=== PATIENT | male | born 1965 | race Caucasian/White ===

== ENCOUNTER 2017-03-05 21:47 | Inpatient (IN) | payer OTHER ==
[2017-03-05] MEDS ORDERED: NACL 0.9% 1000 ML 2,000 ML ONE (22:06)
[2017-03-05] MEDS ORDERED: VASELINE LIP THERAPY TP PRN (22:11)
[2017-03-05] MEDS ORDERED: ARTIFICIAL TEARS OPHTH OINT OU PRN (22:11)
--- NOTE | 2017-03-05 22:14 | Emergency Department Report ---
ED General Adult HPI - General Chief complaint: Altered Mental Status Stated complaint: OVERDOSE Time Seen by Provider: 03/05/17 22:07 Source: EMS (verbal report received from EMS.ems notes not available at time of chart dictation), RN notes reviewed Limitations: Altered Mental Status, Physical Limitation - History of Present Illness Initial comments: This is a 51-year-old male, he is previously unknown to me. He is brought to the hospital by EMS for altered mental status. As per verbal report from EMS, patient found outside, laying down, for uncertain mechanism, for uncertain duration of time. They report normal Accu-Chek in the field, they report patient was initially obtunded, however his obtundation improved with Narcan. Upon arrival to the ER, the patient was delirious, agitated, and sonorously breathing. He was not protecting his airway, and was clearly a danger to himself and other staff members. Therefore, he was emergently intubated by myself using direct laryngoscopy, after rapid sequence intubation No further history is available at this time -: unknown Improves with: none, immobilization Associated Symptoms: confusion - Related Data Allergies Allergy/AdvReac Type Severity Reaction Status Date / Time Unable to Assess Allergy Verified 03/05/17 22:29 ED Review of Systems ROS: Stated complaint: OVERDOSE Other details as noted in HPI Comment: Unobtainable due to pts medical conditions ED Physical Exam - General Limitations: Altered Mental Status, Physical Limitation General appearance: lethargic - Head Head exam: Present: atraumatic, normocephalic - Eye Eye exam: Present: normal appearance, PERRL - ENT ENT exam: Present: mucous membranes dry - Neck Neck exam: Present: normal inspection, full ROM. Absent: tenderness, meningismus - Respiratory Respiratory exam: Present: normal lung sounds bilaterally. Absent: respiratory distress, wheezes, rales, rhonchi, stridor, chest wall tenderness, accessory muscle use, decreased breath sounds, prolonged expiratory - Cardiovascular Cardiovascular Exam: Present: normal rhythm, tachycardia, normal heart sounds. Absent: systolic murmur, diastolic murmur, rubs, gallop - GI/Abdominal GI/Abdominal exam: Present: soft, normal bowel sounds. Absent: distended, tenderness, guarding, rebound, rigid, pulsatile mass - Rectal Rectal exam: Present: normal inspection - exam: Present: normal inspection - Extremities Exam Extremities exam: Present: normal inspection, full ROM, normal capillary refill. Absent: tenderness, pedal edema, joint swelling, calf tenderness - Back Exam Back exam: Present: normal inspection, full ROM. Absent: tenderness, CVA tenderness (R), CVA tenderness (L), muscle spasm, paraspinal tenderness, vertebral tenderness - Neurological Exam Neurological exam: Present: altered, other (prior to intubation, the patient is moving 4 extremities spontaneously) - Psychiatric Psychiatric exam: Present: other (patient nonverbal upon arrival) - Skin Skin exam: Present: warm, dry, intact, normal color. Absent: rash ED Course Vital Signs 03/05/17 03/05/17 03/05/17 21:44 21:45 21:48 Temperature 99.5 F Pulse Rate 123 H 124 H 125 H Respiratory 16 22 16 Rate Blood Pressure 122/75 125/80 O2 Sat by Pulse 99 100 98 Oximetry 03/05/17 03/05/17 03/05/17 22:00 22:15 22:30 Temperature Pulse Rate 128 H 105 H 106 H Respiratory 15 16 20 Rate Blood Pressure 115/67 127/101 O2 Sat by Pulse 100 100 Oximetry 03/05/17 03/05/17 03/05/17 22:45 22:48 23:00 Temperature Pulse Rate 101 H 106 H 111 H Respiratory 32 H 20 Rate Blood Pressure 125/78 115/67 166/103 O2 Sat by Pulse 100 100 99 Oximetry 03/05/17 03/05/17 03/06/17 23:15 23:56 00:00 Temperature Pulse Rate 104 H 85 Respiratory 19 17 19 Rate Blood Pressure 147/92 147/92 123/84 O2 Sat by Pulse 98 100 97 Oximetry 03/06/17 03/06/17 03/06/17 00:01 00:15 00:31 Temperature Pulse Rate 88 84 Respiratory 18 17 27 H Rate Blood Pressure 123/84 118/75 147/92 O2 Sat by Pulse 98 99 98 Oximetry 03/06/17 03/06/17 03/06/17 00:45 00:46 00:51 Temperature Pulse Rate 81 79 82 Respiratory 18 16 Rate Blood Pressure 125/81 O2 Sat by Pulse 99 99 Oximetry 03/06/17 01:00 Temperature Pulse Rate 77 Respiratory 18 Rate Blood Pressure 127/83 O2 Sat by Pulse 99 Oximetry - Reevaluation(s) Reevaluation #1: 03/06/17 00:47 The patient is placed on a 1013 in case this is a suicidal gesture. I will defer to the inpatient team to consult mental health. Reevaluation #2: 03/06/17 02:34 Patient has remained clinically stable. Lactic acid normal lites. Anion gap acidosis normalized. pEnding placement into the intensive care unit. - Intubation Time Out Performed: Yes Sedative: Etomidate Mg Given: 20 Paralytic: Rocuronium Mg Given: 100 Laryngoscope: Paul Size: 4 ET Tube Size: 7.5 Tube Secured Location: teeth Tube Placement Confirmation: visualized tube passing t Patient Tolerated Procedure: well Intubation Complications: none Additional Comments: Prior to intubation, the patient is placed on a nasal cannula at 15 L/m, and receives [id number] ventilation. He does not desaturate. He is then introduced with 20 mg of etomidate, and 100 mg of rocuronium. Direct laryngoscopy is performed with a Paul 4 blade, and a 7.5 endotracheal tube was inserted by myself with direct visualization of the vocal cords. Patient is intubated with C-spine immobilization technique. ED Medical Decision Making - Lab Data Result diagrams: 03/05/17 22:08 03/06/17 01:05 Vital Signs 03/05/17 03/05/17 03/05/17 21:44 21:45 21:48 Temperature 99.5 F Pulse Rate 123 H 124 H 125 H Respiratory 16 22 16 Rate Blood Pressure 122/75 125/80 O2 Sat by Pulse 99 100 98 Oximetry 03/05/17 03/05/17 03/05/17 22:00 22:15 22:30 Temperature Pulse Rate 128 H 105 H 106 H Respiratory 15 16 20 Rate Blood Pressure 115/67 127/101 O2 Sat by Pulse 100 100 Oximetry 03/05/17 03/05/17 03/05/17 22:45 22:48 23:00 Temperature Pulse Rate 101 H 106 H 111 H Respiratory 32 H 20 Rate Blood Pressure 125/78 115/67 166/103 O2 Sat by Pulse 100 100 99 Oximetry 03/05/17 03/05/17 03/06/17 23:15 23:56 00:00 Temperature Pulse Rate 104 H 85 Respiratory 19 17 19 Rate Blood Pressure 147/92 147/92 123/84 O2 Sat by Pulse 98 100 97 Oximetry Lab Results 03/05/17 03/05/17 03/05/17 Range/Units 22:00 22:08 22:08 WBC 10.0 (4.5-11.0) K/mm3 RBC 4.10 (3.65-5.03) M/mm3 Hgb 12.6 (11.8-15.2) gm/dl Hct 38.5 (35.5-45.6) % MCV 94 (84-94) fl MCH 31 (28-32) pg MCHC 33 (32-34) % RDW 14.6 (13.2-15.2) % Plt Count 281 (140-440) K/mm3 Howell % (Auto) Electron Gun Inspector PT 14.4 (12.2-14.9) Sec. INR 1.06 (0.87-1.13) APTT 26.3 (24.2-36.6) Sec. POC ABG pH (7.35-7.45) POC ABG pCO2 (35-45) POC ABG pO2 (80-105) POC ABG HCO3 POC ABG Total CO2 POC ABG O2 Sat POC ABG Base Excess FiO2 % Sodium (137-145) mmol/L Potassium (3.6-5.0) mmol/L Chloride (98-107) mmol/L Carbon Dioxide (22-30) mmol/L Anion Gap mmol/L BUN (9-20) mg/dL Creatinine (0.8-1.5) mg/dL Estimated GFR ml/min BUN/Creatinine Ratio % Glucose (75-100) mg/dL Lactic Acid 14.00 H* (0.7-2.0) mmol/L Calcium (8.4-10.2) mg/dL Total Bilirubin (0.1-1.2) mg/dL AST (5-40) units/L ALT (7-56) units/L Alkaline Phosphatase (35-129) units/L Ammonia (25-60) umol/L Total Creatine Kinase (55-170) units/L Troponin T (0.00-0.029) ng/mL Total Protein (6.3-8.2) g/dL Albumin (3.9-5) g/dL Albumin/Globulin Ratio % TSH (0.270-4.200) mlU/mL Urine Color (Yellow) Urine Turbidity (Clear) Urine pH (5.0-7.0) Ur Specific Strawberry (1.003-1.030) Urine Protein (Negative) mg/dL Urine Glucose (UA) (Negative) mg/dL Urine Ketones (Negative) mg/dL Urine Blood (Negative) Urine Nitrite (Negative) Urine Bilirubin (Negative) Urine Urobilinogen (<2.0) mg/dL Ur Leukocyte Esterase (Negative) Urine WBC (Auto) (0.0-6.0) /HPF Urine RBC (Auto) (0.0-6.0) /HPF Urine Bacteria (Auto) (Negative) /HPF Urine Mucus /HPF Salicylates (2.8-20.0) mg/dL Urine Opiates Screen Urine Methadone Screen Acetaminophen (10.0-30.0) ug/mL Ur Barbiturates Screen Ur Phencyclidine Scrn Ur Amphetamines Screen U Benzodiazepines Scrn Urine Cocaine Screen U Marijuana (THC) Screen Drugs of Abuse Note 03/05/17 03/05/17 03/05/17 Range/Units 22:09 22:14 22:14 WBC (4.5-11.0) K/mm3 RBC (3.65-5.03) M/mm3 Hgb (11.8-15.2) gm/dl Hct (35.5-45.6) % MCV (84-94) fl MCH (28-32) pg MCHC (32-34) % RDW (13.2-15.2) % Plt Count (140-440) K/mm3 Howell % (Auto) PT (12.2-14.9) Sec. INR (0.87-1.13) APTT (24.2-36.6) Sec. POC ABG pH (7.35-7.45) POC ABG pCO2 (35-45) POC ABG pO2 (80-105) POC ABG HCO3 POC ABG Total CO2 POC ABG O2 Sat POC ABG Base Excess FiO2 % Sodium (137-145) mmol/L Potassium (3.6-5.0) mmol/L Chloride (98-107) mmol/L Carbon Dioxide (22-30) mmol/L Anion Gap mmol/L BUN (9-20) mg/dL Creatinine (0.8-1.5) mg/dL Estimated GFR ml/min BUN/Creatinine Ratio % Glucose (75-100) mg/dL Lactic Acid (0.7-2.0) mmol/L Calcium (8.4-10.2) mg/dL Total Bilirubin (0.1-1.2) mg/dL AST (5-40) units/L ALT (7-56) units/L Alkaline Phosphatase (35-129) units/L Ammonia (25-60) umol/L Total Creatine Kinase (55-170) units/L Troponin T (0.00-0.029) ng/mL Total Protein (6.3-8.2) g/dL Albumin (3.9-5) g/dL Albumin/Globulin Ratio % TSH 2.900 (0.270-4.200) mlU/mL Urine Color Lee Ann (Yellow) Urine Turbidity Clear (Clear) Urine pH 5.0 (5.0-7.0) Ur Specific Strawberry 1.025 (1.003-1.030) Urine Protein 100 mg/dl (Negative) mg/dL Urine Glucose (UA) Neg (Negative) mg/dL Urine Ketones Tr (Negative) mg/dL Urine Blood Sm (Negative) Urine Nitrite Neg (Negative) Urine Bilirubin Neg (Negative) Urine Urobilinogen 4.0 (<2.0) mg/dL Ur Leukocyte Esterase Neg (Negative) Urine WBC (Auto) 2.0 (0.0-6.0) /HPF Urine RBC (Auto) 6.0 (0.0-6.0) /HPF Urine Bacteria (Auto) 1+ (Negative) /HPF Urine Mucus 2+ /HPF Salicylates (2.8-20.0) mg/dL Urine Opiates Screen Presumptive negative Urine Methadone Screen Presumptive negative Acetaminophen (10.0-30.0) ug/mL Ur Barbiturates Screen Presumptive negative Ur Phencyclidine Scrn Presumptive negative Ur Amphetamines Screen Presumptive positive U Benzodiazepines Scrn Presumptive negative Urine Cocaine Screen Presumptive positive U Marijuana (THC) Screen Presumptive negative Drugs of Abuse Note Disclamer 03/05/17 03/05/17 03/05/17 Range/Units 22:47 22:48 22:49 WBC (4.5-11.0) K/mm3 RBC (3.65-5.03) M/mm3 Hgb (11.8-15.2) gm/dl Hct (35.5-45.6) % MCV (84-94) fl MCH (28-32) pg MCHC (32-34) % RDW (13.2-15.2) % Plt Count (140-440) K/mm3 Howell % (Auto) PT (12.2-14.9) Sec. INR (0.87-1.13) APTT (24.2-36.6) Sec. POC ABG pH 7.300 L (7.35-7.45) POC ABG pCO2 46.4 H (35-45) POC ABG pO2 623 H (80-105) POC ABG HCO3 22.8 POC ABG Total CO2 24 POC ABG O2 Sat 100 POC ABG Base Excess -4 FiO2 100 % Sodium (137-145) mmol/L Potassium (3.6-5.0) mmol/L Chloride (98-107) mmol/L Carbon Dioxide (22-30) mmol/L Anion Gap mmol/L BUN (9-20) mg/dL Creatinine (0.8-1.5) mg/dL Estimated GFR ml/min BUN/Creatinine Ratio % Glucose (75-100) mg/dL Lactic Acid (0.7-2.0) mmol/L Calcium (8.4-10.2) mg/dL Total Bilirubin (0.1-1.2) mg/dL AST (5-40) units/L ALT (7-56) units/L Alkaline Phosphatase (35-129) units/L Ammonia 241.0 H (25-60) umol/L Total Creatine Kinase (55-170) units/L Troponin T (0.00-0.029) ng/mL Total Protein (6.3-8.2) g/dL Albumin (3.9-5) g/dL Albumin/Globulin Ratio % TSH (0.270-4.200) mlU/mL Urine Color (Yellow) Urine Turbidity (Clear) Urine pH (5.0-7.0) Ur Specific Strawberry (1.003-1.030) Urine Protein (Negative) mg/dL Urine Glucose (UA) (Negative) mg/dL Urine Ketones (Negative) mg/dL Urine Blood (Negative) Urine Nitrite (Negative) Urine Bilirubin (Negative) Urine Urobilinogen (<2.0) mg/dL Ur Leukocyte Esterase (Negative) Urine WBC (Auto) (0.0-6.0) /HPF Urine RBC (Auto) (0.0-6.0) /HPF Urine Bacteria (Auto) (Negative) /HPF Urine Mucus /HPF Salicylates < 0.3 L (2.8-20.0) mg/dL Urine Opiates Screen Urine Methadone Screen Acetaminophen (10.0-30.0) ug/mL Ur Barbiturates Screen Ur Phencyclidine Scrn Ur Amphetamines Screen U Benzodiazepines Scrn Urine Cocaine Screen U Marijuana (THC) Screen Drugs of Abuse Note 03/05/17 03/05/17 Range/Units 22:49 22:53 WBC (4.5-11.0) K/mm3 RBC (3.65-5.03) M/mm3 Hgb (11.8-15.2) gm/dl Hct (35.5-45.6) % MCV (84-94) fl MCH (28-32) pg MCHC (32-34) % RDW (13.2-15.2) % Plt Count (140-440) K/mm3 Howell % (Auto) PT (12.2-14.9) Sec. INR (0.87-1.13) APTT (24.2-36.6) Sec. POC ABG pH (7.35-7.45) POC ABG pCO2 (35-45) POC ABG pO2 (80-105) POC ABG HCO3 POC ABG Total CO2 POC ABG O2 Sat POC ABG Base Excess FiO2 % Sodium 138 (137-145) mmol/L Potassium 4.3 (3.6-5.0) mmol/L Chloride 94.8 L (98-107) mmol/L Carbon Dioxide 12 L (22-30) mmol/L Anion Gap 36 mmol/L BUN 16 (9-20) mg/dL Creatinine 1.0 (0.8-1.5) mg/dL Estimated GFR > 60 ml/min BUN/Creatinine Ratio 16.00 % Glucose 155 H (75-100) mg/dL Lactic Acid (0.7-2.0) mmol/L Calcium 9.2 (8.4-10.2) mg/dL Total Bilirubin 0.60 (0.1-1.2) mg/dL AST 276 H (5-40) units/L ALT 295 H (7-56) units/L Alkaline Phosphatase 91 (35-129) units/L Ammonia (25-60) umol/L Total Creatine Kinase 727 H (55-170) units/L Troponin T < 0.010 (0.00-0.029) ng/mL Total Protein 8.7 H (6.3-8.2) g/dL Albumin 4.0 (3.9-5) g/dL Albumin/Globulin Ratio 0.9 % TSH (0.270-4.200) mlU/mL Urine Color (Yellow) Urine Turbidity (Clear) Urine pH (5.0-7.0) Ur Specific Strawberry (1.003-1.030) Urine Protein (Negative) mg/dL Urine Glucose (UA) (Negative) mg/dL Urine Ketones (Negative) mg/dL Urine Blood (Negative) Urine Nitrite (Negative) Urine Bilirubin (Negative) Urine Urobilinogen (<2.0) mg/dL Ur Leukocyte Esterase (Negative) Urine WBC (Auto) (0.0-6.0) /HPF Urine RBC (Auto) (0.0-6.0) /HPF Urine Bacteria (Auto) (Negative) /HPF Urine Mucus /HPF Salicylates (2.8-20.0) mg/dL Urine Opiates Screen Urine Methadone Screen Acetaminophen < 15.0 (10.0-30.0) ug/mL Ur Barbiturates Screen Ur Phencyclidine Scrn Ur Amphetamines Screen U Benzodiazepines Scrn Urine Cocaine Screen U Marijuana (THC) Screen Drugs of Abuse Note - EKG Data -: EKG Interpreted by De EKG shows normal: sinus rhythm Rate: tachycardia - EKG Data When compared to previous EKG there are: previous EKG unavailable 03/06/17 00:43 Sinus tachycardia, 103 bpm, normal axis, QTC 503 ms, abnormal EKG, not morphologically consistent with stemi - Radiology Data Radiology results: report reviewed, image reviewed X-ray the chest is negative for acute disease. Endotracheal tube noted at the liban. Noncontrast CT scan of the brain is negative Noncontrast CT scan of the cervical spine is negative - Medical Decision Making Differential diagnosis: Polysubstance overdose, toxic encephalopathy, metabolic encephalopathy, withdrawal seizure to cranial injury, cervical spine injury Assessment and plan: 51-year-old male who is currently intubated with altered mental status, most likely with a toxic/metabolic encephalopathy. He is initially tachycardic, this has improved with supportive care. Blood pressure has remained stable. Creatinine kinase elevated at 700 with normal renal function, he is afebrile rectally, laboratory studies indicate an elevated ammonia level, transaminitis, elevated lactic acid level, with the urine toxicology being positive for cocaine and amphetamines. Most likely, the patient has an encephalopathy secondary to sympathomimetic abuse. The patient will not benefit from charcoal, because we do not have an exact onset of symptoms, and his serum toxicology studies at this point time have been negative. We will repeat a lactic acid and basic metabolic panel to assess if the gap has closed with supportive care. Case is presented to the Hospital physician, Dr. Joy, And the critical care physician, Dr. Zelaya, who accepted the patient, and who authorized triaged to the ICU respectively. , Critical Care Time: Yes Critical care time in (mins) excluding proc time.: 60 Critical care attestation.: If time is entered above; I have spent that time in minutes in the direct care of this critically ill patient, excluding procedure time. Critical Care Time: Critical care time includes multiple bedside evaluations, interpretation of laboratory studies, radiology studies, time spent resuscitating a critically ill patient with a toxic metabolic encephalopathy, who requires intubation, consultation with hospital medicine, critical care. This does not include procedure time. ED Disposition Clinical Impression: Encephalopathy, Respiratory failure Disposition: 09 OP ADMIT IP TO THIS HOSP Is pt being admited?: Yes Condition: Critical
[2017-03-05 22:50] LABS: Urine Drugs of Abuse Note Disclamer
[2017-03-05] MEDS ORDERED: NACL 0.9% 1000 ML 1,000 ML IV ONE ×3 (22:53→23:05)
[2017-03-05 22:57] LABS: Hematocrit 38.5 % (35.5-45.6); Hemoglobin 12.6 gm/dl (11.8-15.2); Mean Corpuscular HGB Conc 33 % (32-34); Mean Corpuscular Hemoglobin 31 pg (28-32); Mean Corpuscular Volume 94 fl (84-94); Platelet Count 281 K/mm3 (140-440); Red Cell Distribution Width 14.6 % (13.2-15.2)
[2017-03-05] MEDS ORDERED: NACL 0.9% 500 ML IV SCH (23:00)
[2017-03-05 23:02] LABS: Bacteria,Urine 1+ /HPF (Negative); Bilirubin,Urine NEG (Negative); Blood,Urine SM (Negative); Ketones,Urine TR mg/dL (Negative); Leukocyte Esterase,Urine NEG (Negative); Mucus,Urine 2+ /HPF; Nitrite,Urine NEG (Negative)
[2017-03-05] MEDS: fentaNYL DRIP Premix 2,000 MCG/100 ML BAG IV SCH (23:04)
[2017-03-05] MEDS: DIPRIVAN 10 MG/ML 1,000 MG/100 ML BOTTLE IV SCH (23:04)
[2017-03-05 23:07] LABS: INR 1.06 (0.87-1.13)
[2017-03-05 23:08] LABS: Partial Thromboplastin Time 26.3 Sec. (24.2-36.6)
[2017-03-05] MEDS ORDERED: CEPHULAC FEEDTUBE ONE (23:10)
[2017-03-05 23:14] LABS: ISTAT Base Excess -4; ISTAT HCO3 22.8; ISTAT PCO2 46.4 (35-45); ISTAT PO2 623 (80-105); ISTAT SO2 100; ISTAT TCO2 24
[2017-03-05 23:31] LABS: Albumin/Globulin Ratio 0.9 %; Alkaline Phosphatase 91 units/L (35-129); Blood Urea Nitrogen 16 mg/dL (9-20); Calcium 9.2 mg/dL (8.4-10.2); Carbon Dioxide 12 mmol/L (22-30); Chloride 94.8 mmol/L (98-107); Creatine Kinase 727 units/L (55-170); Glucose 155 mg/dL (75-100); Sodium 138 mmol/L (137-145); Total Protein 8.7 g/dL (6.3-8.2)
[2017-03-05 23:41] LABS: Alanine Aminotransferase 295 units/L (7-56); Anion Gap 36 mmol/L; Potassium 4.3 mmol/L (3.6-5.0)
[2017-03-05] MEDS ORDERED: NACL 0.9% 1000 ML 1,000 ML IV SCH (23:45)
--- NOTE | 2017-03-06 00:34 | Cat Scan Report ---
FINAL REPORT EXAM: CT HEAD/BRAIN WO CON HISTORY: Altered Mental Status TECHNIQUE: Noncontrast serial axial images from skull base to vertex. PRIORS: CT scan of the head from 06/19/2012 FINDINGS: There is no mass effect or midline shift. There are no abnormal intra or extra-axial fluid collections. Cortical sulci and lateral ventricles are within normal limits for size and configuration. Basilar cisterns are patent. No acute intracranial hemorrhage is identified. Mucosal thickening is seen in scattered ethmoidal air cells and in the frontoethmoidal recesses. No acute osseous abnormality is identified. Nasogastric tube and endotracheal tube are noted in the carton inspector image. IMPRESSION: 1. No abnormal mass or acute intracranial hemorrhage is identified.
--- NOTE | 2017-03-06 01:07 | Cat Scan Report ---
FINAL REPORT EXAM: CT CERVICAL SPINE WO CON HISTORY: ams TECHNIQUE: Noncontrast serial axial images through the cervical spine with coronal and sagittal reconstruction. PRIORS: None. FINDINGS: No gross abnormality is seen in the visualized portion of the brain. Mastoid air cells are well aerated. Prevertebral soft tissues appear within normal limits. Endotracheal tube and enteric tube are noted. There is fluid in pharynx. Visualized portion of the lung apices are clear. No acute fracture or anterolisthesis is identified. Degenerative changes are noted at multiple levels. IMPRESSION: 1. No acute fracture or anterolisthesis is identified. 2. Multilevel degenerative change is noted. 3. Support devices are noted. There is fluid in the pharynx.
[2017-03-06] MEDS ORDERED: ZOFRAN IV PRN (01:34)
[2017-03-06] MEDS ORDERED: TYLENOL PR PRN (01:36)
[2017-03-06 01:40] LABS: BUN/Creatinine Ratio 18.57; Blood Urea Nitrogen 13 mg/dL (9-20); Calcium 7.4 mg/dL (8.4-10.2); Carbon Dioxide 19 mmol/L (22-30); Chloride 104.7 mmol/L (98-107); Glucose 126 mg/dL (75-100); Potassium 3.5 mmol/L (3.6-5.0); Sodium 138 mmol/L (137-145)
[2017-03-06 01:57] LABS: Anion Gap 18 mmol/L
[2017-03-06] MEDS ORDERED: NACL 0.9% 1000 ML 1,000 ML IV SCH (02:00)
[2017-03-06 02:05] LABS: Blastocytes % (Manual) 0 %
[2017-03-06 02:06] LABS: Anisocytosis 1+; Diff Status Complete; Platelet Estimate Consistent w Auto
[2017-03-06] MEDS ORDERED: CEPHULAC ONE (03:25)
[2017-03-06] MEDS ORDERED: DIPRIVAN 10 MG/ML 1,000 MG/100 ML BOTTLE IV ONE (04:55)
[2017-03-06 05:41] LABS: ISTAT Base Excess -3; ISTAT HCO3 22.8; ISTAT PCO2 41.4 (35-45); ISTAT PH 7.348 (7.35-7.45); ISTAT PO2 149 (80-105); ISTAT SO2 99; ISTAT TCO2 24
[2017-03-06] MEDS: DIPRIVAN 10 MG/ML 1,000 MG/100 ML BOTTLE IV SCH ×2 (06:04→19:53)
[2017-03-06] MEDS ORDERED: NACL 0.9% 1000 ML 2,000 ML ONE (06:42)
[2017-03-06 07:07] LABS: Hematocrit 33.9 % (35.5-45.6); Hemoglobin 11.6 gm/dl (11.8-15.2); Mean Corpuscular HGB Conc 34 % (32-34); Mean Corpuscular Hemoglobin 31 pg (28-32); Mean Corpuscular Volume 92 fl (84-94); Platelet Count 232 K/mm3 (140-440); Red Blood Count 3.69 M/mm3 (3.65-5.03); Red Cell Distribution Width 14.8 % (13.2-15.2); White Blood Count 7.3 K/mm3 (4.5-11.0)
[2017-03-06 07:13] LABS: Anion Gap 15 mmol/L; Blood Urea Nitrogen 12 mg/dL (9-20); Calcium 7.2 mg/dL (8.4-10.2); Carbon Dioxide 21 mmol/L (22-30); Chloride 107.2 mmol/L (98-107); Glucose 94 mg/dL (75-100); Potassium 3.7 mmol/L (3.6-5.0); Sodium 139 mmol/L (137-145)
[2017-03-06 07:15] LABS: Creatine Kinase MB 5.1 ng/mL (0.0-4.0)
[2017-03-06 07:16] LABS: Creatine Kinase 504 units/L (55-170)
--- NOTE | 2017-03-06 07:28 | Admit Criteria Form ---
Admission Criteria Documentation: RESPIRATORY FAILURE GRG Clinical Indications for Admission to Inpatient Care (Place 'X' for any and all applicable criteria): Hospital admission is needed for appropriate care of the patient because of acute respiratory failure or insufficiency as indicated by 1 or more of the following (1)(2)(3)(4)(5)(6)(7)(8 ): [X]I. Mechanical ventilation needed (acute invasive or noninvasive) [X]II. Severe ventilation deficit as indicated by 1 or more of the following ( 9) [X]a) Uncompensated Respiratory acidosis (pH < 7.35 and PaCO2 > 40 mmHg (5.3 kPa)) [ ]b) Airflow measurements < 25% of predicted (eg, PEFR < 100 L/min) [ ]c) FVC < 15 mL/kg of ideal body weight, or 50% decrease in vital capacity from baseline [ ]III. Noncardiac pulmonary edema not resolving with rapid emergency treatment (8) [ ]IV. Severe respiratory distress as indicated by 1 or more of the following: [ ]a) Severe tachypnea (respiratory rate greater than 30, greater than 45 for 6-month-old, greater than 60 for ) [ ]b) Severe hypoxemia (partial pressure of oxygen less than 50 mm Hg ( 6.7 kPa) on greater than 50% oxygen or partial pressure of oxygen to FIO2 ratio less than 200) [ ]c) Mental status deterioration from respiratory disease [ ]V. Airway obstruction or inadequate protection [A](10)(11) The original [employer] content created by [employer] has been revised. The portions of the content which have been revised are identified through the use of italic text or in bold, and [employer] has neither reviewed nor approved the modified material. All other unmodified content is copyright [employer]. Please see references footnoted in the original [employer] edition 2017 Admission Criteria Met: Yes
--- NOTE | 2017-03-06 09:16 | History and Physical Report ---
CHIEF COMPLAINT: Change in mental status. HISTORY OF PRESENT ILLNESS: The patient is a 51-year-old male brought to the Emergency Room with a change in mental status. The patient was noted by EMS to be found outside lying down for unknown period of time. He was checked for blood glucose, which was found to be normal. The patient according to EMS was obtunded, and they gave him a dose of Narcan, which improved his mental status. Upon arrival in the Emergency Room, the patient was noted to be agitated and delirious and also having some heavy snoring with difficulty breathing. He was emergently intubated to protect his airway. There was no prior history of chest pain. No prior history of shortness of breath, fever or chills. PAST MEDICAL HISTORY: Not known. FAMILY HISTORY: Noncontributory. SOCIAL HISTORY: Not well known. MEDICATIONS: The patient's home medications are not known. MEDICATIONS: The patient's home medications are not known at this time. ALLERGIES: There are no known drug allergies. REVIEW OF SYSTEMS: CONSTITUTIONAL: There is no fever, no chills, no diaphoresis. HEENT: There is no headache or sore throat. CARDIOVASCULAR: There is no chest pain or orthopnea. RESPIRATORY: There is shortness of breath, but no cough. GASTROINTESTINAL SYSTEM: There is no nausea, no vomiting, no abdominal pain, diarrhea or constipation. NEUROLOGIC: Change in mental status noted. MUSCULOSKELETAL SYSTEM: There is no joint pain or swelling. DERMATOLOGICAL SYSTEM: There is no skin rash or itching. GENITOURINARY: There is no dysuria, hematuria, or flank pain. Rest of system review is normal. PHYSICAL EXAMINATION: GENERAL: At the time of exam, the patient was intubated and sedated, mechanically ventilated, not in acute distress. VITAL SIGNS: Shows normal temperature with pulse of 70, respirations 16, blood pressure 128/86, and O2 sat of 100% on mechanical ventilation. HEENT: Pinpoint pupils that react sluggishly to light. NECK: Supple with no JVD or carotid bruit. CARDIOVASCULAR: Showed normal first and second heart sounds with no gallops or murmurs. LUNGS: Showed good air entry on both sides of the lung, including endotracheal tube and mechanical ventilation, there are no adventitious breath sounds. GASTROINTESTINAL SYSTEM: Show abdomen to be full, soft, nontender with no organomegaly or rigidity elicited. NEUROLOGIC: Shows no focal deficits. MUSCULOSKELETAL SYSTEM: Show no joint swelling or tenderness. DERMATOLOGICAL: Show no skin rash. GENITOURINARY: No costovertebral angle tenderness. PERTINENT LABORATORY DATA AND IMAGING STUDIES: The patient has CBC done that was unremarkable except for increase in the CBC differential showing elevated lymphocyte count of 37% and elevated monocyte count of 17. The patient's coagulation studies came back unremarkable. ABG showed a slightly decreased pH of 7.30 with slightly elevated pCO2 of 46.4 and elevated pO2 of 623 and this was done on FiO2 of 100%. Chemistry shows normal sodium and normal potassium and decreased CO2 of 12 and low chloride of 94.8. The patient's lactic acid level was high with a value of 14 and liver transaminases show a high value of 276 for AST and ALT of 295. The patient's ammonia level was high with a value of 241. Total CPK was high with a value 727 and protein level was slightly elevated with a value of 8.7. Urinalysis came back unremarkable. Urine drug screen is positive for amphetamines and cocaine. IMAGING STUDIES: The patient's CT of the head shows no abnormal mass or acute intracranial hemorrhage. Also, the patient had a CT of the cervical spine done that shows no acute fracture or anterolisthesis. There are multilevel degenerative changes in the joints and supportive devices noted with fluid in the pharynx. DIAGNOSES: 1. Altered mental status. 2. High ammonium level. 3. Polysubstance abuse with cocaine and amphetamine. 4. Rhabdomyolysis. 5. Lactic acidosis. PLAN: The patient will be admitted to medical floor and we will continue the mechanical ventilation with sedation started in the Emergency Room using fentanyl and Versed. DVT prophylaxis will be through sequential compressive device and the patient's ammonia will be checked this morning. The patient will also have basic metabolic panel and CBC checked this morning and will have cardiac enzymes, troponin, total CK, and CK-MB checked q.6 hours x 2 more levels. The patient will be on Tylenol 650 mg rectally q.4 hours for fever and headache and will be on lactulose 10 g t.i.d. via nasogastric tube. The patient will be on IV Zofran 4 mg every 8 hours for nausea and vomiting and will be on IV normal saline foot running at about 150 mL an hour. The patient will have repeat of lactic acid done. [facility]# [id number] [facility]/SIM VELAZQUEZ
--- NOTE | 2017-03-06 09:35 | XRay Report ---
PORTABLE CHEST INDICATION: ET tube placement. COMPARISON: None similar. FINDINGS: Portable, frontal chest radiograph demonstrates top normal heart size and clear lungs, given the inspiration. An esophagogastric tube noted in the proximal stomach with its tip directed cephalad towards the fundus. Endotracheal tube tip at the liban. EKG leads. Intact bones. CONCLUSION: 1. Low lying endotracheal tube, as described that may be retracted approximately 3.5 cm for more optimal placement, if so appropriate. 2. Other findings, as above. I phoned the above results to Dr. Riojas in the ER, 9 AM, 03/06/2017. Thank you for the opportunity to participate in this patient's care.
[2017-03-06] MEDS ORDERED: AMIDATE IV ONE (11:34)
[2017-03-06] MEDS ORDERED: VERSED IV ONE (11:34)
[2017-03-06] MEDS ORDERED: ZEMURON IV ONE (11:34)
--- NOTE | 2017-03-06 12:17 | Consultation ---
History of Present Illness Consult date: 03/06/17 Requesting physician: KVNG WILSON History of present illness: Unable to obtain from the patient. Intubated and sedated. As per ER records, overdose with alteration in mental status. Intubated for airway protection Medications and Allergies Allergies Allergy/AdvReac Type Severity Reaction Status Date / Time Unable to Assess Allergy Verified 03/05/17 22:29 Home Medications Medication Instructions Recorded Confirmed Last Taken Type Unobtainable 03/06/17 03/06/17 Unknown History Active Meds: Active Medications Acetaminophen (Tylenol) 650 mg KS Q4H PRN PRN Reason: Pain, Mild (1-3) Heparin Sodium (Porcine) (Heparin) 5,000 unit SUB-Q Q12HR KAVEH Hydrophilic Ointment (Vaseline Lip Therapy) 1 applic TP Q2HR PRN PRN Reason: Dry Lips Fentanyl Citrate (Fentanyl Drip Premix) 2,000 mcg in 100 mls @ 3.198 mls/hr IV TITR KAVEH; 1 MCG/KG/HR PRN Reason: Protocol Last Titration: 03/06/17 00:04 Dose: 3 mcg/kg/hr, 9.594 mls/hr Propofol (Diprivan 10 Mg/Ml) 1,000 mg in 100 mls @ 1.919 mls/hr IV TITR KAVEH; 5 MCG/KG/MIN PRN Reason: Protocol Last Titration: 03/06/17 10:04 Dose: 20 mcg/kg/min, 7.675 mls/hr Sodium Chloride (Nacl 0.9% 1000 Ml) 1,000 mls @ 125 mls/hr IV DIRECT KAVEH Last Admin: 03/06/17 06:50 Dose: 125 mls/hr Multi-Ingred Cream/Lotion/Oil/Oint (Artificial Tears Ophth Oint) 1 applic OU Q4HR PRN PRN Reason: Dry Eye(s) Ondansetron HCl (Zofran) 4 mg IV Q8H PRN PRN Reason: Nausea And Vomiting Sodium Chloride (Nacl 0.9% 500 Ml) 1 ml IV DIRECT KAVEH Review of Systems ROS unobtainable: due to endotracheal tube, due to mental status Physical Examination Vital signs: Vital Signs Pulse Resp Pulse Ox 123 H 16 99 03/05/17 21:44 03/05/17 21:44 03/05/17 21:44 General appearance: no acute distress, asleep, other (rousable, will open eyes to verbal command: heavily tatooed) Eyes: non-icteric ENT: oropharynx moist Neck: supple Effort: normal Ascultation: Bilateral: clear, diminished breath sounds Cardiovascular: regular rate and rhythm Gastrointestinal: normoactive bowel sounds, soft, non-tender, non-distended Integumentary: normal Extremities: no cyanosis, no edema Musculoskeletal: no deformities unable to assess, other (sedated) Results - Laboratory Findings CBC and BMP: 03/07/17 04:01 03/07/17 04:01 ABG POC ABG pH 7.348 (7.35-7.45) L 03/06/17 05:07 POC ABG pCO2 41.4 (35-45) 03/06/17 05:07 POC ABG pO2 149 (80-105) H 03/06/17 05:07 POC ABG HCO3 22.8 03/06/17 05:07 POC ABG Total CO2 24 03/06/17 05:07 POC ABG O2 Sat 99 03/06/17 05:07 PT/INR, D-dimer PT 14.4 Sec. (12.2-14.9) 03/05/17 22:08 INR 1.06 (0.87-1.13) 03/05/17 22:08 Abnormal lab findings: Abnormal Labs 03/06/17 03/06/17 03/06/17 05:07 06:42 06:42 Hgb Hct POC ABG pH 7.348 L POC ABG pO2 149 H Chloride Carbon Dioxide Calcium Ammonia 75.0 H Total Creatine Kinase 504 H CK-MB (CK-2) 5.1 H 03/06/17 03/06/17 06:42 06:42 Hgb 11.6 L Hct 33.9 L POC ABG pH POC ABG pO2 Chloride 107.2 H Carbon Dioxide 21 L Calcium 7.2 L Ammonia Total Creatine Kinase CK-MB (CK-2) - Diagnostic Findings Chest x-ray: report reviewed Assessment and Plan - Patient Problems (1) Acute respiratory failure with hypoxemia Current Visit: Yes Status: Acute Plan to address problem: Stop midazolam and place on spontaneous breathing trial. Get weaning parameters and plan to liberate from the ventilator, if he meets criteria. VAP bundle addressed. Aspiration precautions VTE and stress ulcer prophylaxis Daily SATs, SBTs if not extubated. Discussed with RT and RN at the bedside (2) Encephalopathy Current Visit: Yes Status: Acute Plan to address problem: Secondary to OD. Currently intubated with sedation on hold. Needs behavioural health consult once extubated
[2017-03-06] MEDS: HEPARIN SUB-Q SCH (12:43)
[2017-03-06 13:10] LABS: ISTAT Base Excess -5; ISTAT HCO3 22.5; ISTAT PH 7.245 (7.35-7.45); ISTAT PO2 82 (80-105); ISTAT SO2 94; ISTAT TCO2 24
[2017-03-06 14:28] LABS: Creatine Kinase MB 4.5 ng/mL (0.0-4.0)
[2017-03-06 14:29] LABS: Creatine Kinase 371 units/L (55-170)
--- NOTE | 2017-03-06 18:51 | Event Note ---
Date: 03/06/17 patient seen and examined this am, remains intubated, continue current care. monitor for any sign of withdrawals
[2017-03-06] MEDS: fentaNYL DRIP Premix 2,000 MCG/100 ML BAG IV SCH (19:54)
[2017-03-07] MEDS: HEPARIN SUB-Q SCH ×3 (03:00→22:06)
[2017-03-07 04:16] LABS: Hematocrit 31.7 % (35.5-45.6); Hemoglobin 10.6 gm/dl (11.8-15.2); Mean Corpuscular HGB Conc 34 % (32-34); Mean Corpuscular Hemoglobin 31 pg (28-32); Mean Corpuscular Volume 93 fl (84-94); Platelet Count 231 K/mm3 (140-440); Red Blood Count 3.42 M/mm3 (3.65-5.03); Red Cell Distribution Width 14.9 % (13.2-15.2); White Blood Count 13.2 K/mm3 (4.5-11.0)
[2017-03-07 04:32] LABS: Anion Gap 16 mmol/L; Blood Urea Nitrogen 13 mg/dL (9-20); Calcium 7.7 mg/dL (8.4-10.2); Carbon Dioxide 20 mmol/L (22-30); Chloride 112.2 mmol/L (98-107); Glucose 76 mg/dL (75-100); Potassium 3.5 mmol/L (3.6-5.0); Sodium 145 mmol/L (137-145)
[2017-03-07 05:36] LABS: ISTAT Base Excess -3; ISTAT HCO3 22.4; ISTAT PCO2 39.4 (35-45); ISTAT PH 7.363 (7.35-7.45); ISTAT PO2 157 (80-105); ISTAT SO2 99; ISTAT TCO2 24
--- NOTE | 2017-03-07 09:17 | XRay Report ---
AP CHEST: HISTORY: Followup respiratory failure. The endotracheal tube has been retracted and now terminates 6 cm superior to the liban. The nasogastric tube terminates in the fundus of the stomach. AP view of the chest demonstrates a normal mediastinal and cardiac contour with clear lungs and normal bony and soft tissue structures. IMPRESSION: Unremarkable AP chest.
--- NOTE | 2017-03-07 11:20 | Consultation ---
History of Present Illness - Reason for Consult Consult date: 03/07/17 Reason for consult: Mental Health Evaluation Requesting physician: PAYAL AMARO - Chief Complaint Chief complaint: Patient intubated" - History of Present Psychiatric Illness This is a 51-year-old male brought to [facility] by EMS for AMS. Per a verbal report from EMS, patient was found outside lying down. Today patient was calm, but intubated during assessment. He nodded "yes" to having a hx of depression. He nodded "no" to being suicidal. Patient was able to squeeze my hand on command. Will follow-up with patient once extubated. Medications and Allergies Allergies Allergy/AdvReac Type Severity Reaction Status Date / Time Unable to Assess Allergy Verified 03/05/17 22:29 Home Medications Medication Instructions Recorded Confirmed Last Taken Type Unobtainable 03/06/17 03/06/17 Unknown History Active Meds: Active Medications Acetaminophen (Tylenol) 650 mg NV Q4H PRN PRN Reason: Pain, Mild (1-3) Heparin Sodium (Porcine) (Heparin) 5,000 unit SUB-Q Q12HR KAVEH Last Admin: 03/07/17 03:00 Dose: 5,000 unit Hydrophilic Ointment (Vaseline Lip Therapy) 1 applic TP Q2HR PRN PRN Reason: Dry Lips Fentanyl Citrate (Fentanyl Drip Premix) 2,000 mcg in 100 mls @ 3.198 mls/hr IV TITR KAVEH; 1 MCG/KG/HR PRN Reason: Protocol Last Titration: 03/07/17 08:13 Dose: 0 mcg/kg/hr, 0 mls/hr Propofol (Diprivan 10 Mg/Ml) 1,000 mg in 100 mls @ 1.919 mls/hr IV TITR KAVEH; 5 MCG/KG/MIN PRN Reason: Protocol Last Titration: 03/07/17 07:00 Dose: 0 mcg/kg/min, 0 mls/hr Sodium Chloride (Nacl 0.9% 1000 Ml) 1,000 mls @ 125 mls/hr IV DIRECT KAVEH Last Admin: 03/06/17 06:50 Dose: 125 mls/hr Multi-Ingred Cream/Lotion/Oil/Oint (Artificial Tears Ophth Oint) 1 applic OU Q4HR PRN PRN Reason: Dry Eye(s) Ondansetron HCl (Zofran) 4 mg IV Q8H PRN PRN Reason: Nausea And Vomiting Sodium Chloride (Nacl 0.9% 500 Ml) 1 ml IV DIRECT KAVEH Past psychiatric history - Past Medical History Past Medical History: other (patient nods to not having a medical hx) Past Surgical History: Other (patient nods to not having a medical hx) - past Psychiatric treatment and history Psych: Depression psychiatric treatment history: Patient admit to nodding yes to having depression. - Social History Social history: Lives alone (Nods to "yes" to living alone ) Mental Status Exam - Vital signs Last Vital Signs Temp 99.7 F H 03/06/17 17:45 Pulse 68 03/07/17 09:00 Resp 16 03/07/17 08:45 BP 106/58 03/07/17 09:00 Pulse Ox 98 03/07/17 09:00 - Exam Narrative exam: Unable to complete MSE, due to current medical condition. Results Result Diagrams: 03/07/17 04:01 03/07/17 04:01 Abnormal lab results 03/06/17 03/06/17 03/07/17 Range/Units 13:03 13:46 04:01 WBC 13.2 H (4.5-11.0) K/mm3 RBC 3.42 L (3.65-5.03) M/mm3 Hgb 10.6 L (11.8-15.2) gm/dl Hct 31.7 L (35.5-45.6) % POC ABG pH 7.245 L (7.35-7.45) POC ABG pCO2 52.0 H (35-45) POC ABG pO2 (80-105) Potassium (3.6-5.0) mmol/L Chloride (98-107) mmol/L Carbon Dioxide (22-30) mmol/L Calcium (8.4-10.2) mg/dL Total Creatine Kinase 371 H (55-170) units/L CK-MB (CK-2) 4.5 H (0.0-4.0) ng/mL 03/07/17 03/07/17 Range/Units 04:01 05:27 WBC (4.5-11.0) K/mm3 RBC (3.65-5.03) M/mm3 Hgb (11.8-15.2) gm/dl Hct (35.5-45.6) % POC ABG pH (7.35-7.45) POC ABG pCO2 (35-45) POC ABG pO2 157 H (80-105) Potassium 3.5 L (3.6-5.0) mmol/L Chloride 112.2 H (98-107) mmol/L Carbon Dioxide 20 L (22-30) mmol/L Calcium 7.7 L (8.4-10.2) mg/dL Total Creatine Kinase (55-170) units/L CK-MB (CK-2) (0.0-4.0) ng/mL All other labs normal. Assessment and Plan Assessment and plan: Impression: Patient positive for cocaine. Today patient was calm, but intubated when asked questions. CK 375, trending down. Medical: AMS Recommendation/Plan: Continue 1013. Gather more information from patient once extubated.
--- NOTE | 2017-03-07 11:38 | Event Note ---
Date: 03/07/17 Patient in ER as an ICU hold. Seen and examined, vitals, labs, medications, chart reviewed. Clinically doing well. Awake. alert, obeying commands. Chest: Good AE bilaterally. On PSV, doing well- RSBI <70 Plan to extubate. Discussed with hospitalist service and RN/RT at the bedside. Once extubated , can transfer to telemetry.
--- NOTE | 2017-03-07 14:47 | Progress Note ---
Assessment and Plan Assessment and plan: This is a 51-year-old male, he is previously unknown to me. He is brought to the hospital by EMS for altered mental status. As per verbal report from EMS, patient found outside, laying down, for uncertain mechanism, for uncertain duration of time. They report normal Accu-Chek in the field, they report patient was initially obtunded, however his obtundation improved with Narcan. Upon arrival to the ER, the patient was delirious, agitated, and sonorously breathing. He was not protecting his airway, and was clearly a danger to himself and other staff members. Therefore, he was emergently intubated by myself using direct laryngoscopy, after rapid sequence intubation Toxic encephalopathy likely secondary to polysubstance abuse * Appears to be improving, continue to monitor for signs of withdrawal Acute Respiratory failure with hypoxemia * Pulmonary following, possible extubation from the vent today Cocain AND Amphetamine poisioning * counselling when more awake Rhabdomyolysis * Continue hydration SIRS secondary to non infectious etiology * Lactic acidosis noted, RESOLVED. NO CLEAR Evidence of infection. monitor for any developing fever. DVT/GI prophylaxis Plan of care discussed with Professor Of Biology. History Interval history: Patient seen and examined in the ER remains intubated awaiting a bed in the ICU. He is much more awake, and following commands, able to raise his head up from the bed and squeez hands, take deep breath. No adverse event reported by Nursing staff. Hospitalist Physical - Constitutional Vitals: Temp Pulse Resp BP Pulse Ox 99.7 F H 76 11 L 103/61 97 03/06/17 17:45 03/07/17 12:45 03/07/17 12:45 03/07/17 12:45 03/07/17 12:45 General appearance: Present: mild distress, well-nourished, other (ON MECHNAIVAL VENTILATOR) - EENT Eyes: Present: PERRL, EOM intact ENT: hearing intact, other (ETT) - Neck Neck: Present: supple, normal ROM. Absent: masses or JVD, carotid bruits - Respiratory Respiratory effort: other (VENT) Respiratory: bilateral: other (TRANSMITTED BRONCHIVESICULAR SOUNDS) - Cardiovascular Rhythm: regular Heart Sounds: Present: S1 & S2 - Extremities Extremities: no ischemia, pulses intact, pulses symmetrical Peripheral Pulses: within normal limits - Abdominal General gastrointestinal: soft, non-tender, non-distended, normal bowel sounds - Integumentary Integumentary: Present: clear, warm, dry - Psychiatric Psychiatric: appropriate mood/affect, cooperative, other - Neurologic Neurologic: CNII-XII intact, moves all extremities - Allied Health Allied health notes reviewed: nursing Results - Labs CBC & Chem 7: 03/07/17 04:01 03/07/17 04:01 Labs: Laboratory Last Values WBC 13.2 K/mm3 (4.5-11.0) H 03/07/17 04:01 RBC 3.42 M/mm3 (3.65-5.03) L 03/07/17 04:01 Hgb 10.6 gm/dl (11.8-15.2) L 03/07/17 04:01 Hct 31.7 % (35.5-45.6) L 03/07/17 04:01 MCV 93 fl (84-94) 03/07/17 04:01 MCH 31 pg (28-32) 03/07/17 04:01 MCHC 34 % (32-34) 03/07/17 04:01 RDW 14.9 % (13.2-15.2) 03/07/17 04:01 Plt Count 231 K/mm3 (140-440) 03/07/17 04:01 [place] % (Auto) Medical Lab Assistant 03/05/17 22:08 Add Manual Diff Complete 03/05/17 22:08 Total Counted 100 03/05/17 22:08 Seg Neuts % (Manual) 40.0 % (40.0-70.0) 03/05/17 22:08 Band Neutrophils % 2.0 % 03/05/17 22:08 Lymphocytes % (Manual) 37.0 % (13.4-35.0) H 03/05/17 22:08 Reactive Lymphs % (Man) 0 % 03/05/17 22:08 Monocytes % (Manual) 17.0 % (0.0-7.3) H 03/05/17 22:08 Eosinophils % (Manual) 3.0 % (0.0-4.3) 03/05/17 22:08 Basophils % (Manual) 1.0 % (0.0-1.8) 03/05/17 22:08 Metamyelocytes % 0 % 03/05/17 22:08 Myelocytes % 0 % 03/05/17 22:08 Promyelocytes % 0 % 03/05/17 22:08 Blast Cells % 0 % 03/05/17 22:08 Nucleated RBC % Not Reportable 03/05/17 22:08 Seg Neutrophils # Man 4.0 K/mm3 (1.8-7.7) 03/05/17 22:08 Band Neutrophils # 0.2 K/mm3 03/05/17 22:08 Lymphocytes # (Manual) 3.7 K/mm3 (1.2-5.4) 03/05/17 22:08 Abs React Lymphs (Man) 0.0 K/mm3 03/05/17 22:08 Monocytes # (Manual) 1.7 K/mm3 (0.0-0.8) H 03/05/17 22:08 Eosinophils # (Manual) 0.3 K/mm3 (0.0-0.4) 03/05/17 22:08 Basophils # (Manual) 0.1 K/mm3 (0.0-0.1) 03/05/17 22:08 Metamyelocytes # 0.0 K/mm3 03/05/17 22:08 Myelocytes # 0.0 K/mm3 03/05/17 22:08 Promyelocytes # 0.0 K/mm3 03/05/17 22:08 Blast Cells # 0.0 K/mm3 03/05/17 22:08 WBC Morphology Not Reportable 03/05/17 22:08 Hypersegmented Neuts Not Reportable 03/05/17 22:08 Hyposegmented Neuts Not Reportable 03/05/17 22:08 Hypogranular Neuts Not Reportable 03/05/17 22:08 Smudge Cells Not Reportable 03/05/17 22:08 Toxic Granulation Not Reportable 03/05/17 22:08 Toxic Vacuolation Not Reportable 03/05/17 22:08 Dohle Bodies Not Reportable 03/05/17 22:08 Pelger-Huet Anomaly Not Reportable 03/05/17 22:08 Elias Rods Not Reportable 03/05/17 22:08 Platelet Estimate Consistent w auto 03/05/17 22:08 Clumped Platelets Not Reportable 03/05/17 22:08 Plt Clumps, EDTA Not Reportable 03/05/17 22:08 Large Platelets Not Reportable 03/05/17 22:08 Giant Platelets Not Reportable 03/05/17 22:08 Platelet Satelliting Not Reportable 03/05/17 22:08 Plt Morphology Comment Not Reportable 03/05/17 22:08 RBC Morphology Not Reportable 03/05/17 22:08 Dimorphic RBCs Not Reportable 03/05/17 22:08 Polychromasia Not Reportable 03/05/17 22:08 Hypochromasia Not Reportable 03/05/17 22:08 Poikilocytosis Not Reportable 03/05/17 22:08 Anisocytosis 1+ 03/05/17 22:08 Microcytosis Not Reportable 03/05/17 22:08 Macrocytosis Not Reportable 03/05/17 22:08 Spherocytes Not Reportable 03/05/17 22:08 Pappenheimer Bodies Not Reportable 03/05/17 22:08 Sickle Cells Not Reportable 03/05/17 22:08 Target Cells Not Reportable 03/05/17 22:08 Tear Drop Cells Not Reportable 03/05/17 22:08 Ovalocytes Not Reportable 03/05/17 22:08 Helmet Cells Not Reportable 03/05/17 22:08 [place] Bodies Not Reportable 03/05/17 22:08 [place] Rings Not Reportable 03/05/17 22:08 [place] Cells Not Reportable 03/05/17 22:08 Bite Cells Not Reportable 03/05/17 22:08 Crenated Cell Not Reportable 03/05/17 22:08 Elliptocytes Not Reportable 03/05/17 22:08 Acanthocytes (Spur) Not Reportable 03/05/17 22:08 Rouleaux Not Reportable 03/05/17 22:08 Hemoglobin C Crystals Not Reportable 03/05/17 22:08 Schistocytes Not Reportable 03/05/17 22:08 Malaria parasites Not Reportable 03/05/17 22:08 [place] Bodies Not Reportable 03/05/17 22:08 Hem Pathologist Commnt No 03/05/17 22:08 PT 14.4 Sec. (12.2-14.9) 03/05/17 22:08 INR 1.06 (0.87-1.13) 03/05/17 22:08 APTT 26.3 Sec. (24.2-36.6) 03/05/17 22:08 POC ABG pH 7.363 (7.35-7.45) 03/07/17 05:27 POC ABG pCO2 39.4 (35-45) 03/07/17 05:27 POC ABG pO2 157 (80-105) H 03/07/17 05:27 POC ABG HCO3 22.4 03/07/17 05:27 POC ABG Total CO2 24 03/07/17 05:27 POC ABG O2 Sat 99 03/07/17 05:27 POC ABG Base Excess -3 03/07/17 05:27 FiO2 40 % 03/07/17 05:27 Sodium 145 mmol/L (137-145) 03/07/17 04:01 Potassium 3.5 mmol/L (3.6-5.0) L 03/07/17 04:01 Chloride 112.2 mmol/L (98-107) H 03/07/17 04:01 Carbon Dioxide 20 mmol/L (22-30) L 03/07/17 04:01 Anion Gap 16 mmol/L 03/07/17 04:01 BUN 13 mg/dL (9-20) 03/07/17 04:01 Creatinine 1.0 mg/dL (0.8-1.5) 03/07/17 04:01 Estimated GFR > 60 ml/min 03/07/17 04:01 BUN/Creatinine Ratio 13.00 % 03/07/17 04:01 Glucose 76 mg/dL (75-100) 03/07/17 04:01 Lactic Acid 1.10 mmol/L (0.7-2.0) 03/06/17 00:36 Calcium 7.7 mg/dL (8.4-10.2) L 03/07/17 04:01 Total Bilirubin 0.60 mg/dL (0.1-1.2) 03/05/17 22:53 AST 276 units/L (5-40) H 03/05/17 22:53 ALT 295 units/L (7-56) H 03/05/17 22:53 Alkaline Phosphatase 91 units/L (35-129) 03/05/17 22:53 Ammonia 75.0 umol/L (25-60) H 03/06/17 06:42 Total Creatine Kinase 371 units/L (55-170) H 03/06/17 13:46 CK-MB (CK-2) 4.5 ng/mL (0.0-4.0) H 03/06/17 13:46 CK-MB (CK-2) Rel Index 1.2 (0-4) 03/06/17 13:46 Troponin T < 0.010 ng/mL (0.00-0.029) 03/06/17 13:46 Total Protein 8.7 g/dL (6.3-8.2) H 03/05/17 22:53 Albumin 4.0 g/dL (3.9-5) 03/05/17 22:53 Albumin/Globulin Ratio 0.9 % 03/05/17 22:53 TSH 2.900 mlU/mL (0.270-4.200) 03/05/17 22:09 Urine Color [place] (Yellow) 03/05/17 22:14 Urine Turbidity Clear (Clear) 03/05/17 22:14 Urine pH 5.0 (5.0-7.0) 03/05/17 22:14 Ur Specific [place] 1.025 (1.003-1.030) 03/05/17 22:14 Urine Protein 100 mg/dl mg/dL (Negative) 03/05/17 22:14 Urine Glucose (UA) Neg mg/dL (Negative) 03/05/17 22:14 Urine Ketones Tr mg/dL (Negative) 03/05/17 22:14 Urine Blood Sm (Negative) 03/05/17 22:14 Urine Nitrite Neg (Negative) 03/05/17 22:14 Urine Bilirubin Neg (Negative) 03/05/17 22:14 Urine Urobilinogen 4.0 mg/dL (<2.0) 03/05/17 22:14 Ur Leukocyte Esterase Neg (Negative) 03/05/17 22:14 Urine WBC (Auto) 2.0 /HPF (0.0-6.0) 03/05/17 22:14 Urine RBC (Auto) 6.0 /HPF (0.0-6.0) 03/05/17 22:14 Urine Bacteria (Auto) 1+ /HPF (Negative) 03/05/17 22:14 Urine Mucus 2+ /HPF 03/05/17 22:14 Salicylates < 0.3 mg/dL (2.8-20.0) L 03/05/17 22:49 Urine Opiates Screen Presumptive negative 03/05/17 22:14 Urine Methadone Screen Presumptive negative 03/05/17 22:14 Acetaminophen < 15.0 ug/mL (10.0-30.0) 03/05/17 22:49 Ur Barbiturates Screen Presumptive negative 03/05/17 22:14 Ur Phencyclidine Scrn Presumptive negative 03/05/17 22:14 Ur Amphetamines Screen Presumptive positive 03/05/17 22:14 U Benzodiazepines Scrn Presumptive negative 03/05/17 22:14 Urine Cocaine Screen Presumptive positive 03/05/17 22:14 U Marijuana (THC) Screen Presumptive negative 03/05/17 22:14 Drugs of Abuse Note Disclamer 03/05/17 22:14 - Imaging and Cardiology Chest x-ray: image reviewed (NO ACUTE PATHOLOGY NOTED)
[2017-03-08] MEDS: HEPARIN SUB-Q SCH (09:09)
--- NOTE | 2017-03-08 11:47 | Discharge Summary ---
Providers - Providers Date of Admission: 03/06/17 01:28 Attending physician: KVNG WILSON MD 03/07/17 09:31 Consult to Dietitian/Nutrition [CONS] Stat Physician Instructions: Reason For Exam: pt is intubated Reason for Consult: Poor oral intake Primary care physician: CLINICAL PRACTICE CONSULTANT Hospitalization Reason for admission: AMS Condition: Critical Hospital course: This is a 51-year-old male, he is previously unknown to me. He is brought to the hospital by EMS for altered mental status. As per verbal report from EMS, patient found outside, laying down, for uncertain mechanism, for uncertain duration of time. They report normal Accu-Chek in the field, they report patient was initially obtunded, however his obtundation improved with Narcan. Upon arrival to the ER, the patient was delirious, agitated, and sonorously breathing. He was not protecting his airway, and was clearly a danger to himself and other staff members. Therefore, he was emergently intubated by myself using direct laryngoscopy, after rapid sequence intubation Toxic encephalopathy likely secondary to polysubstance abuse * Resolved. patient was treated with supportive care. no further withdrawal sign noted since extubational Acute Respiratory failure with hypoxemia * Patient was intubated for about less than 48 hours for respiratory protection and extubated successfully Cocain AND Amphetamine poisioning * counselling was provided in detail * Patient was also seen by Narinder and rescinded 1013. He denies any sucidal or homicidal ideation Rhabdomyolysis * Continue hydration SIRS secondary to non infectious etiology * Lactic acidosis noted, RESOLVED. NO CLEAR Evidence of infection. Disposition: DC- TO HOME OR SELFCARE Time spent for discharge: 35 mins Core Measure Documentation - Palliative Care Palliative Care/ Comfort Measures: Not Applicable - Core Measures Any of the following diagnoses?: none - VTE Discharge Requirements Deep Vein Thrombosis/Pulmonary Embolism Present on Admission: No Exam - Constitutional Vitals: Temp Pulse Resp BP Pulse Ox 98.9 F 74 20 107/68 97 03/08/17 08:00 03/08/17 08:00 03/08/17 08:00 03/08/17 08:00 03/08/17 09:30 General appearance: Present: no acute distress, mild distress, well-nourished - EENT Eyes: Present: PERRL, EOM intact ENT: hearing intact, clear oral mucosa - Neck Neck: Present: supple, normal ROM - Respiratory Respiratory effort: normal Respiratory: bilateral: CTA - Cardiovascular Rhythm: regular Heart Sounds: Present: S1 & S2. Absent: systolic murmur - Extremities Extremities: no ischemia, pulses intact, pulses symmetrical Peripheral Pulses: within normal limits - Abdominal General gastrointestinal: Present: soft, non-tender, non-distended, normal bowel sounds - Integumentary Integumentary: Present: clear (except for noted tattoe), warm, dry - Musculoskeletal Musculoskeletal: strength equal bilaterally - Psychiatric Psychiatric: appropriate mood/affect, intact judgment & insight, cooperative - Neurologic Neurologic: CNII-XII intact - Allied Health Allied health notes reviewed: nursing Plan Activity: advance as tolerated, fall precautions Special Instructions: record daily BP diary, smoking cessation, other (must quit substance abuse) Follow up with: PRIMARY CAREMD [Primary Care Provider] - 3-5 Days ARCELIA FISCHER MD [Staff Physician] - 7 Days
--- NOTE | 2017-03-08 14:39 | Progress Note ---
Subjective - Reason for Consult Consult date: 03/08/17 Reason for consult: Psychiatry Follow-up - Chief Complaint Chief complaint: "Reshma' This is a 51-year-old male brought to [facility] by EMS for AMS. Per a verbal report from EMS, patient was found outside lying down. Today patient is calm and cooperative during assessment. He stated that he does not remember what happened to him prior to being admitted to [facility]. He did state that he was treated for depression in senior living for 7 years with Trazodone. He stated that he has not taken the medication in a "long time." He denies trying to kill himself prior to his admission [facility] or in the past. Per the patient, most of his family is located in [place] and [place]. He denies SI/HI's and AVH's. He denies sleep disturbance and a poor appetite. He denies recreational drug use, but positive for amphetamines and cocaine. He denies excessive alcohol consumption. Mental Status Exam - Vital signs Last Vital Signs Temp 98.9 F 03/08/17 08:00 Pulse 66 03/08/17 10:00 Resp 20 03/08/17 10:00 BP 107/68 03/08/17 08:00 Pulse Ox 97 03/08/17 10:00 - Exam Narrative exam: MSE: Appearance: calm, cooperative Behavior: regular eye contact Speech: regular rate and tone Mood: "okay" Affect: congruent to mood Thought Process: linear Thought Content: denies SI/HI's and AVH's Motor Activity: lying in bed Cognition: A/Ox 3 Insight: fair Judgment: fair Assessment and Plan Impression: Historical dx: Depression. Substance Use DO (amphetamines/cocaine). Patient positive for cocaine and amphetamines. Today patient was calm and cooperative during assessment. Patient is no threat to self. Recommendation/Plan: Rescind 1013. Patient can follow up with outpatient rehab services ([facility]) once discharged. Discussed the importance to abstain from recreational drug use.
[2017-03-08 16:15] VITALS: BP 114/68
== END 2017-03-08 17:15 | disposition home or self-care (01) | DRG 917 ==
LOC: ED 21:47 → EEVIPCON 21:47 → CC1 03-06 01:28 → 4A 03-07 12:32
PROVIDERS: ADMIT Internal Medicine; ATTEND Internal Medicine
PROC: 0BH18EZ Insertion of Endotracheal Airway into Trachea, Via Natural or Artificial Opening Endoscopic (ICD-10-PCS; 2017-03-05)
PROC: 4A033R1 Measurement of Arterial Saturation, Peripheral, Percutaneous Approach (ICD-10-PCS; principal; 2017-03-06)
DX: T40.5X1A Poisoning by cocaine, accidental (unintentional), initial encounter (principal); J96.01 Acute respiratory failure with hypoxia; G92 Toxic encephalopathy; M62.82 Rhabdomyolysis; R65.10 Systemic inflammatory response syndrome (SIRS) of non-infectious origin without acute organ dysfunction; E87.2 Acidosis; T43.621A Poisoning by amphetamines, accidental (unintentional), initial encounter; Y92.89 Other specified places as the place of occurrence of the external cause; F32.9 Major depressive disorder, single episode, unspecified
CPT/HCPCS: 36415; 36600; 51702; 70450; 71010; 72125; 80048; 80053; 80307; 80320; 81001; 82140; 82550; 82553; 82803; 84443; 84484; 85007; 85025; 85027; 85610; 85730; 87070; 87086; 87205; 93005; 93010; 94002; 94003; 94760; 96361; 96374; 96375; 99291; G0480; J1644; J2250; J2560; J2704; J3010; J7030